=== PATIENT | male | born 1990 | race Caucasian/White ===

== ENCOUNTER 2024-09-26 22:09 | Inpatient (IN) | payer SELFPAY ==
[2024-09-26 22:12] VITALS: BP 161/97; PULSE 96; RESP 18; TEMP 37.1; O2SAT 99; BMI 23.3
[2024-09-26 22:37] LABS: Bilirubin Urine Negative (Negative); Blood Urine Negative (Negative); Glucose Urine UA Negative (Normal); Ketones Urine Negative (Negative); Leukocyte Esterase Urine Negative (Negative); Nitrate Urine Negative (Negative); Protein Urine Negative (Negative); Specific Gravity, Urine 1.006 (1.005-1.030); Urine Appearance Clear (CLEAR); Urine Color Yellow (Yellow); Urobilinogen Urine 0.2 mg/dL (Negative)
--- NOTE | 2024-09-26 22:40 | ED.C_ITS ---
HPI - Psych 2 General: Chief Complaint: Psychiatric Symptoms Stated Complaint: MHE Time Seen by Provider: 09/26/24 22:15 History of Present Illness: Patient presents to the ER by police with concerns of suicidal ideation. Please said they were called for person with suicidal ideation and he found him out in the field with a loaded gun after he has been drinking. Patient says he drank 1/5 of alcohol tonight where he normally does not drink. Patient said a bunch of bad choices brought him here but he would not really elaborate any further. Related Data Allergies Allergy/AdvReac Type Severity Reaction Status Date / Time No Known Allergies Allergy Verified 09/26/24 22:18 Review of Systems 2 General: Reports: 10 or more systems reviewed and unremarkable except in HPI and below Physical Exam 2 Const: COMMON NORMALS: no acute distress, average body habitus, patient oriented x3, no limitations, healthy appearing, alert and well nourished HENMT: COMMON NORMALS: normocephalic, atraumatic, hearing grossly normal bilaterally, external ears normal, Normal external nose present and moist oral mucous membranes HEAD & SCALP: normocephalic and atraumatic NOSE: Normal external nose present EXTERNAL EAR: Yes external ears normal Neck/C-Spine: COMMON NORMALS: no JVD Chest: COMMONS NORMALS: normal inspection of the chest and normal palpation of entire chest wall Resp: COMMON NORMALS: normal respiratory effort, No retractions, No use of accessory muscles and clear to auscultation bilaterally AUSCULTATION: clear to auscultation bilaterally Cardio: COMMON NORMALS: no JVD, regular rate, regular rhythm, S1 normal heart sound present, S2 normal heart sound present, No gallops present (Cardio), No clicks present (Cardio), No murmurs present (Cardio) and No rub (Cardio) R ATE: regular rate RHYTHM: regular rhythm HEART SOUNDS: S1 normal heart sound present and S2 normal heart sound present GI: COMMON NORMALS: Normal to inspection, nondistended, normoactive bowel sounds present, Soft to palpation, non-tender, No hepatosplenomegaly present and no masses PALPATION: Yes Soft to palpation and Yes No hepatosplenomegaly present Neuro: COMMON NORMALS: patient oriented x3 SENSORIUM/ORIENTATION: Yes alert Course 2 Vital Signs: Vital signs: Vital Signs Temperature 98.7 F 09/26/24 22:12 Pulse Rate 96 09/26/24 22:12 Respiratory Rate 18 09/26/24 22:12 Blood Pressure 161/97 09/26/24 22:12 Pulse Oximetry 99 09/26/24 22:12 Oxygen Delivery Me thod Room Air 09/26/24 22:12 MDM - Psych Medical Decision Making Patient presents with suicidal ideation and alcohol intoxication by police custody. Patient is worked up with standard psychiatric clearance fashion. Dr. Elkins was consulted who agreed to place patient in MPU for further evaluation. Lab Data 09/26/24 22:39 09/26/24 22:39 Laboratory Results WBC 6.44 10^3/uL (3.29-11.43) 09/26/24 22:39 RBC 5.04 10^6/uL (3.85-5.65) 09/26/24 22:39 Hgb 15.50 g/dL (11.27-16.99) 09/26/24 22:39 Hct 45.8 % (37-53) 09/26/24 22:39 MCV 90.9 fl (82-101) 09/26/24 22:39 MCH 30.8 pg (27-33) 09/26/24 22:39 MCHC 33.8 g/dL (30-55) 09/26/24 22:39 RDW 12.7 % (12.1-15.1) 09/26/24 22:39 Plt Count 197 10^3/cmm (157-399) 09/26/24 22:39 MPV 9.8 fL (7.4-10.4) 09/26/24 22:39 Neut % (Auto) 55.2 % 09/26/24 22:39 Lymph % (Auto) 34.5 % 09/26/24 22:39 [place] % (Auto) 7.5 % 09/26/24 22:39 Eos % (Auto) 1.7 % 09/26/24:39 Baso % (Auto) 0.9 % 09/26/24: Neut # (Auto) 3.56 10^3/uL (1.8-7.7) 09/26/24 22:39 Lymph # (Auto) 2.2 10^3/uL (0.8-4.8) 09/26/24 22:39 [place] # (Auto) 0.5 10^3/uL (0.2-0.9) 09/26/24 22:39 Eos # (Auto) 0.1 10^3/uL (0.0-0.8) 09/26/24 22:39 Baso # (Auto) 0.1 10^3/uL (0.0-0.1) 09/26/24 22:39 Nucleated RBC % (auto) 0 % 09/26/24 22:39 Nucleated RBCs # 0.0 /100WBC 09/26/24 22:39 Sodium 141 mmol/L (136-145) 09/26/24 22:39 Potassium 3.4 mmol/L (3.5-5.1) L 09/26/24 22:39 Chloride 100 mmol/L (98-107) 09/26/24 22:39 Carbon Dioxide 24 mmol/L (22-29) 09/26/24 22:39 Anion Gap 20.4 (5-19) H 09/26/24 22:39 BUN 17 mg/dL (6-20) 09/26/24 22:39 Creatinine 0.9 mg/dL (0.7-1.2) 09/26/24 22:39 GFR Calculation 96.0 mL/min (90-130) 09/26/24 22:39 Glucose 109 mg/dL (65-115) 09/26/24 22:39 Calculated Osmolality 294 mOsm/kg (285-295) 09/26/24 22:39 Calcium 9.8 mg/dL (8.5-10.5) 09/26/24 22:39 Total Bilirubin 0.3 mg/dL (0.15-1.2) 09/26/24 22:39 AST 47 U/L (0-40) H 09/26/24 22:39 ALT 20 U/L (0-41) 09/26/24 22:39 Alkaline Phosphatase 76 U/L (40-130) 09/26/24 22:39 Total Protein 7.8 g/dL (6.6-8.7) 09/26/24 22:39 Albumin 5.1 g/dL (3.5-5.2) 09/26/24 22:39 Globulin 2.7 g/dL (1.3-4.6) 09/26/24 22:39 Urine Color Yellow (Yellow) 09/26/24 22:23 Urine Appearance Clear (CLEAR) 09/26/24 22: Urine pH 5.0 (5-7) 09/26/24 22:23 Ur Specific [place] 1.006 (1.005-1.030) 09/26/24 22:23 Urine Protein Negative (Negative) 09/26/24 22:23 Urine Glucose (UA) Negative (Normal) 09/26/24 22: Urine Ketones Negative (Negative) 09/26/24 22: Urine Blood Negative (Negative) 09/26/24 22: Urine Nitrate Negative (Negative) 09/26/24 22: Urine Bilirubin Negative (Negative) 09/26/24 22: Urine Urobilinogen 0.2 mg/dL (Negative) 09/26/24 22: Ur Leukocyte Esterase Negative (Negative) 09/26/24 22: Urine RBC 0-2 /hpf (0-2) 09/26/24 22: Urine WBC 6-10 /hpf (0-5) 09/26/24 22: Ur Squamous Epith Cells 0-5 /hpf (0-5) 09/26/24 22: Amorphous Sediment Not Reportable 09/26/24 22: Urine Bacteria None seen /hpf (NONE) 09/26/24 22: Hyaline Casts 7.85 /lpf 09/26/24 22:23 Salicylates < 0.3 mg/dL (3-10) L 09/26/24 22:39 Urine Opiates Screen Negative ng/mL (Negative) 09/26/24 22: Acetaminophen < 5.0 ug/mL (10-30) L 09/26/24 22:39 Ur Barbiturates Screen Negative ng/mL (Negative) 09/26/24 22:23 Ur Phencyclidine Scrn Negative ng/mL (Negative) 09/26/24 22:23 Ur Amphetamines Screen Negative ng/mL (Negative) 09/26/24 22:23 U Benzodiazepines Scrn Negative ng/mL (Negative) 09/26/24 22:23 Urine Cocaine Screen Negative ng/mL (Negative) 09/26/24 22:23 U Marijuana (THC) Screen Positive ng/mL (Negative) H 09/26/24 22:23 Ethyl Alcohol 145 mg/dL (0-10) H 09/26/24 22:39 All radiology interpretation(s) finalized by discharge Discharge Plan Discharge Patient Disposition: Admitted As Inpatient Admit Provider: Jonathan Elkins Clinical Impression: Suicidal ideation Condition: Stable Coding Level of Care Code ED Budget Consultant for Radha Kramer
[2024-09-26 22:42] LABS: Add Urine Microscopic? YES; Bacteria Urine None Seen /hpf; Hyaline Casts Urine 7.85 /lpf; RBC Urine 0-2 /hpf (0-2); Squamous Epithelial Cell Urine 0-5 /hpf (0-5)
[2024-09-26 22:44] LABS: Amphetamines Screen Urine Negative (Negative); Barbiturates Screen Urine Negative (Negative); Benzodiazepines Screen Urine Negative (Negative); Cocaine Screen Urine Negative (Negative); Opiate Screen Urine Negative (Negative); PCP Screen Urine Negative (Negative); THC Screen Urine Positive (Negative)
[2024-09-26 22:50] LABS: UA Slide Review UA Slide Review Perf
[2024-09-26 23:03] LABS: Alanine Aminotransferase 20 U/L (0-41); Albumin Level 5.1 g/dL (3.5-5.2); Alcohol Level 145 mg/dL (0-10); Alkaline Phosphatase 76 U/L (40-130); Anion Gap 20.4 (5-19); Aspartate Amino Transferase 47 U/L (0-40); Blood Urea Nitrogen 17 mg/dL (6-20); Calcium 9.8 mg/dL (8.5-10.5); Carbon Dioxide 24 mmol/L (22-29); Chloride 100 mmol/L (98-107); Creatinine Clr Calc Pharmacy 104.6571; Globulin 2.7 g/dL (1.3-4.6); Glucose 109 mg/dL (65-115); Osmolality Calculated 294 mOsm/kg (285-295); Potassium 3.4 mmol/L (3.5-5.1); Sodium 141 mmol/L (136-145); Total Bilirubin 0.3 mg/dL (0.15-1.2); Total Protein 7.8 g/dL (6.6-8.7)
[2024-09-26 23:05] LABS: Acetaminophen < 5.0 ug/mL (10-30); Salicylate < 0.3 mg/dL (3-10)
[2024-09-26 23:23] LABS: Basophils # 0.1 10^3/uL (0.0-0.1); Basophils % 0.9 %; Eosinophils # 0.1 10^3/uL (0.0-0.8); Eosinophils % 1.7 %; Hematocrit 45.8 % (37-53); Lymphocytes # 2.2 10^3/uL (0.8-4.8); Lymphocytes % 34.5 %; Mean Corpuscular HGB Conc 33.8 g/dL (30-55); Mean Corpuscular Hemoglobin 30.8 pg (27-33); Mean Corpuscular Volume 90.9 fl (82-101); Mean Platelet Volume 9.8 fL (7.4-10.4); Monocytes # 0.5 10^3/uL (0.2-0.9); Monocytes % 7.5 %; Neutrophils # 3.56 10^3/uL (1.8-7.7); Neutrophils % 55.2 %; Nucleated Red Blood Cells % 0 %; Platelet Count 197 10^3/cmm (157-399); Red Blood Count 5.04 10^6/uL (3.85-5.65); Red Cell Distribution Width 12.7 % (12.1-15.1); White Blood Count 6.44 10^3/uL (3.29-11.43)
[2024-09-26 23:25] LABS: Slide Review Slide Review Perform
--- NOTE | 2024-09-26 23:26 | PC.NURSE ---
96 Hour Involuntary Hold Patient Rights have been read to the patient and a copy of the same has been given to him. Personnel Generalist Manager Chani was present at the bedside during presentation of Rights.
--- NOTE | 2024-09-26 23:37 | PC.NURSE ---
ASSUMED CARE OF PT AT 2300. PT IS NOT HAVING SI/HI AT THIS TIME.
--- NOTE | 2024-09-27 00:13 | PC.NURSE ---
PT WAS PLEASANT. DENIED SI/HI, WAS TAKEN TO NPU AND WAS CALM AT THIS TIME. PT WAS IN GREEN SCRUBS.
[2024-09-27 00:15] VITALS: BP 156/97; PULSE 87; RESP 19; TEMP 36.5; O2SAT 100
[2024-09-27] MEDS: hyDROXYzine 25 mg Capsule 50 MG PO (01:04)
[2024-09-27] MEDS: trazodone 50 mg Tablet PO (01:04)
[2024-09-27 04:00] VITALS: BP 125/72; PULSE 137; RESP 18; TEMP 36.9; O2SAT 99
[2024-09-27 08:00] VITALS: BP 164/98; PULSE 126; RESP 18; TEMP 36.8; O2SAT 97
[2024-09-27] MEDS: folic acid 1 mg Tablet PO (08:21)
[2024-09-27] MEDS: thiamine 100 mg Tablet PO (08:22)
[2024-09-27] MEDS: multivitamin therapeutic Tablet 1 TAB PO (08:22)
[2024-09-27] MEDS: ondansetron 4 MG Tablet PO (08:25)
[2024-09-27 12:00] VITALS: BP 163/99; PULSE 119; RESP 18; TEMP 36.5; O2SAT 99
--- NOTE | 2024-09-27 15:51 | W.PM.NPUH&PS ---
Providers/Chief Complaint Admitting Physician: Jonathan Elkins MD Chief Complaint: MHE HPI NPU History of Present Illness Arik Zhang is a 34 year old male who presented to the emergency department with a blood alcohol level of 145 accompanied by the police after the patient had been found out on his property with a loaded gun after he had been imbibing alcohol. The patient had reported that he and his had been at home drinking last night and states that he had drank approximately 1/5 of alcohol and reported that he had become sick. He reports that he has no history of alcohol-related withdrawal symptoms. He reports that he drinks alcohol 2 times a month and reports having limited tolerance. He reports no history of depression currently. He reports no history of suicidal ideation. He reports no illicit drug use. He does report occasional use of marijuana for sleep. He reports no recent stressors and reports no previous attempts at harming himself or others. He denies having any current problems with appetite. He reports no history of mina. He reports no current problems with anxiety. He had reported that he had had problems with falling asleep but he had reported that marijuana had been helpful. He denied any history of psychotic symptoms. He had reported that he had been drunk and reports that he does not have any clear recollection of what may have happened leading to the police coming to his home. He denies any feelings of hopelessness or worthlessness. Inpatient psychiatric history: None Outpatient psychiatric history: None. He has no history of psychotherapy. He has no history of suicide attempts. Medical history: He had reported occasional periods of hypertension but is currently not on medications. Surgeries: Cyst removal and wrist. Allergies: No known drug allergies Current medications: None Family psychiatric history: The patient's mother had a history of depression. Legal history: None Substance abuse history: As stated above. He has no history of inpatient or outpatient subs abuse treatment. He reports occasional alcohol use and marijuana use on a daily basis for sleep. Social history: Patient was born in [facility]. He reports that his biological parents were when the patient was in the fifth grade. He had lived between his 2 parents home. He had graduated high school and [employer] and attended [employer] with the degree in biomedical sciences. He had reported no history of sexual physical or emotional abuse. He reports that he had met his at college and currently has been for 7 years with no children. 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 He has 1 sister and a step father as well as he reports no family stressors as well. Meds NPU Home Medications Medication Instructions Recorded Confirmed Last Taken Type No Known Home Medications 09/27/24 09/27/24 Unknown History Allergies Allergy/AdvReac Type Severity Reaction Status Date / Time No Known Allergies Allergy Verified 09/26/24 22:18 Mental Status Exam MSE Comments: The patient is a healthy white male with fair hygiene and normal gait. There was no evidence of any abnormal involuntary motor movements, tics, or tremors appreciated. His speech was normal in regards to rate rhythm and prosody. There was no evidence of psychomotor agitation or psychomotor retardation. His mood was described as good. His affect appeared bright. His thought process was linear logical and goal-directed. His thought content showed no evidence of active homicidal or suicidal ideation. He did not appear to be responding to internal stimuli. There was no clear evidence of delusional thinking. His attention span appeared fair. He was alert and oriented to person, place, time, and situation. His insight is fair. His judgment is fair currently. His impulse control is fair. Vitals/I&O/Wt Last Vital Signs Temp 97.7 F 09/27/24 12:00 Pulse 119 H 09/27/24 12:00 Resp 18 09/27/24 12:00 BP 163/99 09/27/24 12:00 Pulse Ox 99 09/27/24 12:00 O2 Del Method Room Air 09/27/24 04:00 Weight last 48 hrs Weight 65.771 kg Data NPU 09/26/24 22:39 09/26/24 22:39 A&P Assessment and plan (1) Adjustment disorder with disturbance of conduct: (2) Suicidal ideation: (3) Alcohol abuse: Plan 34-year-old male with no past history of psychiatric treatment to appear to become intoxicated and was brought in involuntarily after concerns about brandishing a gun with no suicidal ideation reported currently. #1.? Engage patient in individual milieu and group therapy. #2?? Recommend sober living treatment at the highest level of care to which the patient is willing to commit #3??? CIWA for alcohol withdrawal #4?? TO-15 minute checks? #5?? Will attempt to gather collateral information while here under context of 96 hour hold. Involuntary Hold Information 96 Hour Hold: 96 Hour Involuntary Admission: Yes 96 Hour Hold Ending Date: 10/03/24 96 Hour Hold Ending Time: 22:55 Other Hold: Hold End Date: 10/03/24 Attestations NPU Medical Necessity Statement*: Inpatient hospitalization is medically necessary and deemed to ?be ?the clinically appropriate intervention ?at this time.? We will monitor/initiate medications and make changes as indicated.? The patient will be in the hospital for over 2 midnights.? The patient?s likely length of stay 2-3 days. Coding Level of Care Code Acute Code for Chg Fwd Diagnoses Adjustment disorder with disturbance of conduct F43.24 Suicidal ideation R45.851 Alcohol abuse F10.10
[2024-09-27 16:00] VITALS: BP 168/89; PULSE 123; RESP 18; TEMP 37.2; O2SAT 99
--- NOTE | 2024-09-27 16:20 | W.PM.NPUDCS ---
Diagnoses at Discharge Discharge Diagnosis (1) Adjustment disorder with disturbance of conduct: Status: Acute (2) Suicidal ideation: Status: Acute (3) Alcohol abuse: Status: Acute Reason for Visit Reason for Visit: MHE Brief History: Arik Zhang is a 34 year old male who presented to the emergency department with a blood alcohol level of 145 accompanied by the police after the patient had been found out on his property with a loaded gun after he had been imbibing alcohol. The patient had reported that he and his had been at home drinking last night and states that he had drank approximately 1/5 of alcohol and reported that he had become sick. He reports that he has no history of alcohol-related withdrawal symptoms. He reports that he drinks alcohol 2 times a month and reports having limited tolerance. He reports no history of depression currently. He reports no history of suicidal ideation. He reports no illicit drug use. He does report occasional use of marijuana for sleep. He reports no recent stressors and reports no previous attempts at harming himself or others. He denies having any current problems with appetite. He reports no history of mina. He reports no current problems with anxiety. He had reported that he had had problems with falling asleep but he had reported that marijuana had been helpful. He denied any history of psychotic symptoms. He had reported that he had been drunk and reports that he does not have any clear recollection of what may have happened leading to the police coming to his home. He denies any feelings of hopelessness or worthlessness. Inpatient psychiatric history: None Outpatient psychiatric history: None. He has no history of psychotherapy. He has no history of suicide attempts. Medical history: He had reported occasional periods of hypertension but is currently not on medications. Surgeries: Cyst removal and wrist. Allergies: No known drug allergies Current medications: None Family psychiatric history: The patient's mother had a history of depression. Legal history: None Substance abuse history: As stated above. He has no history of inpatient or outpatient subs abuse treatment. He reports occasional alcohol use and marijuana use on a daily basis for sleep. Social history: Patient was born in [facility]. He reports that his biological parents were when the patient was in the fifth grade. He had lived between his 2 parents home. He had graduated high school and [employer] and attended [employer] with the degree in biomedical sciences. He had reported no history of sexual physical or emotional abuse. He reports that he had met his at college and currently has been for 7 years with no children. 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 He has 1 sister and a step father as well as he reports no family stressors as well. Hospital Course Hospital Course During the hospitalization, the patient had routine laboratory studies which were within normal limits except for a few outliers.? The patient had endorsed having been under the influence of alcohol and reported that he did not recall making any threats to harm himself. He denied any suicidal ideation at the time of discharge. He had not endorsed any history of active mental health issues minimizing any depression or anxiety. His had corroborated the information as well and had felt comfortable with the patient returning home. There was no evidence of psychosis and lethality was denied at the time of discharge. Additionally, there was a general medical evaluation which was also within normal limits and revealed no new acute processes.? ? Mood and anxiety were well managed.? The patient endorsed a plan to avoid all drugs of abuse and follow up with the aftercare recommendations of the treatment team.? The patient was evaluated and deemed to be absent credible lethality and had achieved the maximum benefit from an inpatient hospitalization, and so was discharged. ? Involuntary Hold Information 96 Hour Hold: 96 Hour Involuntary Admission: Yes 96 Hour Hold Ending Date: 10/03/24 96 Hour Hold Ending Time: 22:55 Other Hold: Hold End Date: 10/03/24 Mental Status Exam MSE Comments: The patient is a healthy white male with fair hygiene and normal gait. There was no evidence of any abnormal involuntary motor movements, tics, or tremors appreciated. His speech was normal in regards to rate rhythm and prosody. There was no evidence of psychomotor agitation or psychomotor retardation. His mood was described as good. His affect appeared bright. His thought process was linear logical and goal-directed. His thought content showed no evidence of active homicidal or suicidal ideation. He did not appear to be responding to internal stimuli. There was no clear evidence of delusional thinking. His attention span appeared fair. He was alert and oriented to person, place, time, and situation. His insight is fair. His judgment is fair currently. His impulse control is fair. Discharge Data Studies Completed and Pending: Laboratory Results WBC 6.44 10^3/uL (3.2 9-11.43) 09/26/24 22:39 RBC 5.04 10^6/uL (3.8 5-5.65) 09/26/24 22:39 Hgb 15.50 g/dL (11.27 -16.99) 09/26/24 22:39 Hct 45.8 % (37-53) 09/26/24 22:39 MCV 90.9 fl (82-101) 09/26/24 22: MCH 30.8 pg (27-33) 09/26/24 22: MCHC 33.8 g/dL (30-55) 09/26/24 22: RDW 12.7 % (12.1-15.1 ) 09/26/24: Plt Count 197 10^3/cmm (157 -399) 09/26/24 22: MPV 9.8 fL (7.4-10.4) 09/26/24 22:39 Neut % (Auto) 55.2 % 09/26/24 22:39 Lymph % (Auto) 34.5 % 09/26/24 22:39 [place] % (Auto) 7.5 % 09/26/24:39 Eos % (Auto) 1.7 % 09/26/24: Baso % (Auto) 0.9 % 09/26/24: Neut # (Auto) 3.56 10^3/uL (1.8 -7.7) 09/26/24 22:39 Lymph # (Auto) 2.2 10^3/uL (0.8- 4.8) 09/26/24:39 [place] # (Auto) 0.5 10^3/uL (0.2- 0.9) 09/26/24:39 Eos # (Auto) 0.1 10^3/uL (0.0- 0.8) 09/26/24: Baso # (Auto) 0.1 10^3/uL (0.0- 0.1) 09/26/24: Nucleated RBC % (a uto) 0 % 09/26/24: Nucleated RBCs # 0.0 /100WBC 09/26/24: Sodium 141 mmol/L (136-1 45) 01/16/25 22:39 Potassium 3.4 mmol/L (3.5-5 .1) L 09/26/24 22:39 Chloride 100 mmol/L (98-10 7) 09/26/24 22:39 Carbon Dioxide 24 mmol/L (22-29) 09/26/24 22:39 Anion Gap 20.4 (5-19) H 09/26/24 22:39 BUN 17 mg/dL (6-20) 09/26/24 22:39 Creatinine 0.9 mg/dL (0.7-1. 2) 09/26/24 22:39 GFR Calculation 96.0 mL/min (90-1 30) 09/26/24 22:39 Glucose 109 mg/dL (65-115 ) 09/26/24 22:39 Calculated Osmolal ity 294 mOsm/kg (285- 295) 09/26/24 22:39 Calcium 9.8 mg/dL (8.5-10 .5) 09/26/24 22:39 Total Bilirubin 0.3 mg/dL (0.15-1 .2) 09/26/24 22:39 AST 47 U/L (0-40) H 09/26/24 22:39 ALT 20 U/L (0-41) 09/26/24 22:39 Alkaline Phosphata se 76 U/L (40-130) 09/26/24 22:39 Total Protein 7.8 g/dL (6.6-8.7 ) 09/26/24 22:39 Albumin 5.1 g/dL (3.5-5.2 ) 09/26/24 22:39 Globulin 2.7 g/dL (1.3-4.6 ) 09/26/24 22:39 Urine Color Yellow (Yellow) 09/26/24 22:23 Urine Appearance Clear (CLEAR) 09/26/24 22:23 Urine pH 5.0 (5-7) 09/26/24 22:23 Ur Specific Gravit y 1.006 (1.005-1.0 30) 09/26/24 22:23 Urine Protein Negative (Negati ve) 09/26/24 22:23 Urine Glucose (UA) Negative (Normal ) 09/26/24 22:23 Urine Ketones Negative (Negati ve) 09/26/24 22: Urine Blood Negative (Negati ve) 09/26/24 22:23 Urine Nitrate Negative (Negati ve) 09/26/24 22:23 Urine Bilirubin Negative (Negati ve) 09/26/24 22:23 Urine Urobilinogen 0.2 mg/dL (Negati ve) 09/26/24 22:23 Ur Leukocyte Karla ase Negative (Negati ve) 09/26/24 22:23 Urine RBC 0-2 /hpf (0-2) 09/26/24 22:23 Urine WBC 6-10 /hpf (0-5) 09/26/24 22:23 Ur Squamous Epith Cells 0-5 /hpf (0-5) 09/26/24 22:23 Amorphous Sediment Not Reportable 09/26/24 22:23 Urine Bacteria None seen /hpf (N ONE) 09/26/24 22:23 Hyaline Casts 7.85 /lpf 09/26/24 22:23 Salicylates < 0.3 mg/dL (3-10 ) L 09/26/24 22:39 Urine Opiates Scre en Negative ng/mL (N egative) 09/26/24 22:23 Acetaminophen < 5.0 ug/mL (10-3 0) L 09/26/24 22:39 Ur Barbiturates Sc reen Negative ng/mL (N egative) 09/26/24 22:23 Ur Phencyclidine S crn Negative ng/mL (N egative) 09/26/24 22:23 Ur Amphetamines Sc reen Negative ng/mL (N egative) 09/26/24 22:23 U Benzodiazepines Scrn Negative ng/mL (N egative) 09/26/24 22:23 Urine Cocaine Scre en Negative ng/mL (N egative) 09/26/24 22:23 U Marijuana (THC) Screen Positive ng/mL (N egative) H 09/26/24 22:23 Ethyl Alcohol 145 mg/dL (0-10) H 09/26/24 22:39 Vitals: Last Vital Signs Temp 97.7 F 09/27/24 12:00 Pulse 119 H 09/27/24 12:00 Resp 18 09/27/24 12:00 BP 163/99 09/27/24 12:00 Pulse Ox 99 09/27/24 12:00 O2 Del Method Room Air 09/27/24 04:00 Discharge Plan Discharge Patient Disposition: Home Condition: Stable Prescriptions: No Action No Known Home Medications Discharge Orders: Discharge Order (Routine); Ordered 09/27/24 Ordered By: Mariano Dewitt Referrals: [facility] [Other] - 4-7 days (They use sliding scale) Discharge Diet: Usual diet Discharge Activity: Resume usual activity Patient Instructions: Opioid Safety, Pain Management Discharge Attestations NPU Time Spent in Discharge Care*: less than 30 min Specific Discharge Activities: Specific discharge activities: educating patient and discussing with medical case worker/social workers/dc planners Coding Level of Care Code Acute Code for Chg Fwd Diagnoses Adjustment disorder with disturbance of conduct F43.24 Suicidal ideation R45.851 Alcohol abuse F10.10
[2024-09-27 16:31] VITALS: BP 168/89; PULSE 119; RESP 18; TEMP 36.5; O2SAT 99
== END 2024-09-27 16:41 | disposition home or self-care (01) | DRG 882 ==
LOC: ER 23:35 → NP 23:50
PROVIDERS: Admitting Provider Psychiatry & Neurology Psychiatry; Emergency Provider Emergency Medicine; Visit Provider Psychiatry & Neurology Psychiatry
DX: F43.24 Adjustment disorder with disturbance of conduct (principal); R45.851 Suicidal ideations; F10.129 Alcohol abuse with intoxication, unspecified; Y90.6 Blood alcohol level of 120-199 mg/100 ml
CPT/HCPCS: 36415; 80053; 80306; 80307; 81001; 85025; 97165; 99285; Q0162